=== PATIENT | male | born 1985 | race Two or more races ===

== ENCOUNTER 2016-05-29 23:43 | Emergency (ER) | payer SELFPAY ==
[~2016-05-29] VITALS: Ht 152.4 cm; Wt 61.0 kg
[~2016-05-29 23:43] MED LIST: ZOLP10TA
[2016-05-30 02:49] VITALS: BP 131/77
== END 2016-05-30 04:09 | disposition home or self-care (01) ==
LOC: ER 23:44
DX: H60.91 Unspecified otitis externa, right ear (principal); J45.909 Unspecified asthma, uncomplicated; F17.210 Nicotine dependence, cigarettes, uncomplicated; F12.10 Cannabis abuse, uncomplicated

== ENCOUNTER 2018-03-26 01:56 | Emergency (ER) | payer SELFPAY ==
[2018-03-26] MEDS ORDERED: cefTRIAXone SOD 1,000 MG VL IM ONE (05:00)
[2018-03-26] MEDS ORDERED: methylPREDNISolone SOD SUCC 125 MG/2 ML VL IM ONE (05:00)
[2018-03-26] MEDS ORDERED: Acetam/CODEINE 120mg/12mg per 5mL UD PO ONE (05:00)
[2018-03-26] MEDS ORDERED: cefTRIAXone SOD 1,000 MG VL ONE (05:03)
[2018-03-26] MEDS ORDERED: methylPREDNISolone SOD SUCC 125 MG/2 ML VL ONE (05:04)
[2018-03-26] MEDS ORDERED: Acetam/CODEINE 120mg/12mg per 5mL UD ONE (05:04)
== END 2018-03-26 05:45 | disposition home or self-care (01) ==
LOC: ER 01:56
DX: J20.9 Acute bronchitis, unspecified (principal); F17.210 Nicotine dependence, cigarettes, uncomplicated; F12.10 Cannabis abuse, uncomplicated
CPT/HCPCS: 71046; 99283; J0696; J2930